=== PATIENT | female | born 1970 | race Caucasian/White ===

== ENCOUNTER → 2017-03-25 | Outpatient (CLI) | payer SELFPAY ==
[~2017-03-25] MED LIST: ADVAIR 250-501 EACH INH; AMBIEN5 MG PO; ASPIRIN LO-DOSE81 MG PO; BENADRYL25 MG PO; CELEXA20 MG PO; CIPRO500 MG PO; COREG 3.1253.125 MG PO; COZAAR100 MG PO; CYMBALTA20 MG PO; HYDRODIURIL25 MG PO; IMDUR30 MG PO; LIPITOR40 MG PO; MELATONIN5 M2 PO; MOTRIN600 MG PO; NEXIUM20 MG PO; NITROSTAT0.4 MG SL; NORVASC5 MG PO; PERCOCET 5-3251 EACH PO; SENNA-S TABLET1 EACH PO; SYMBICORT 16010.2 GM INH; TYLENOL325 MG PO; ULTRAM50 MG PO; XANAX0.5 MG PO; ZANTAC (NON-FO150 MG PO; ZOFRAN4 MG PO
== END | disposition disaster alternative care site (69) ==
LOC: GBCOE 15:00
DX: Z12.31 Encounter for screening mammogram for malignant neoplasm of breast (principal)
CPT/HCPCS: G0202